=== PATIENT | male | born 1965 | race Caucasian/White ===

== ENCOUNTER 2016-03-03 07:28 | Day surgery (SDC) | payer BC ==
[2016-03-03] MEDS ORDERED: LACTATED RINGERS 1,000 ML IV ONE ×4 (07:44→10:50)
[2016-03-03] MEDS ORDERED: BUPIVACAINE 0.5% PF 30 ML VIAL SUBQ ONE ×2 (07:44→10:08)
[2016-03-03] MEDS ORDERED: ceFAZolin 2 GM/50 ML 50 ML IV ONE (08:09)
[2016-03-03] MEDS ORDERED: fentaNYL 100 MCG/2 ML VIAL IVP ONE (09:08)
[2016-03-03] MEDS ORDERED: ONDANSETRON 4 MG/2 ML VIAL IVP ONE (09:08)
[2016-03-03] MEDS ORDERED: PROPOFOL 200 MG/20 ML VIAL IVP ONE (09:08)
[2016-03-03] MEDS ORDERED: MIDAZOLAM 2 MG/2 ML VIAL IVP ONE (09:08)
[2016-03-03] MEDS ORDERED: LIDOCAINE-MPF 2% 5 ML VIAL IM ONE (09:08)
[2016-03-03] MEDS ORDERED: DEXAMETHASONE 4 MG/ML VIAL IVP ONE (09:08)
[2016-03-03] MEDS ORDERED: oxyCOD/ACETAMIN 5 MG/325 MG TABLET PO ONE (10:54)
== END 2016-03-03 07:29 | disposition home or self-care (01) ==
PROC: 0YU60JZ Supplement Left Inguinal Region with Synthetic Substitute, Open Approach (ICD-10-PCS; principal; 2016-03-03 08:30)
DX: K40.90 Unilateral inguinal hernia, without obstruction or gangrene, not specified as recurrent (principal); J45.909 Unspecified asthma, uncomplicated; K75.9 Inflammatory liver disease, unspecified; Z87.442 Personal history of urinary calculi; E03.9 Hypothyroidism, unspecified; Z91.040 Latex allergy status
CPT/HCPCS: 49505; A9270; C1781; J0690; J7120

== ENCOUNTER 2020-04-25 08:27 | Outpatient (CLI) | payer OTHER ==
[2020-04-25] MEDS ORDERED: IOVERSOL 320 100 ML VIAL IVP ONE ×2 (08:43→08:46)
--- NOTE | 2020-04-25 13:16 | CT Report ---
PROCEDURE: IVP INDICATIONS: HEMATURIA CONTRAST: IV CONTRAST: Optiray 320 ml: 140 PO CONTRAST: *NO PO CONTRAST TECHNIQUE: After the administration of intravenous contrast, 5 mm thick sections acquired from the diaphragms to the symphysis. 5 mm thick coronal and sagittal reformats were acquired. For radiation dose reducti on, the following was used: automated exposure control, adjustment of mA and/or kV according to tonya ent size. COMPARISON: None. FINDINGS: Image quality: Excellent. Lung bases: 3 mm left lower lobe nodule is present on series 4 image 96. Pulmonary bleb is noted in t he right lower lobe. Heart size is normal. Urinary system: Both kidneys are normal in size and enhancement. Contrast-filled renal calyces are normal in morphology. Contrast filled portions of both ureters are normal in caliber. Bladder wall thickness is normal. There is a 14 mm calcification within the posterior right lateral bladder near the ureterovesicular junction, Hounsfield units 782. There are no calcifications within the kidneys o r ureters. No obstruction. Solid organs: Liver and spleen are normal in size and enhancement. Gallbladder demonstrates a depen dent stone without wall thickening. Biliary system is non dilated. Pancreas enhances normally. No adrenal nodules. Peritoneum and bowel: Bowel loops demonstrate normal wall thickness and caliber. No free fluid or a ir. Colonic diverticula are present without associated inflammatory change. Nodes and vessels: No retroperitoneal or mesenteric adenopathy by size criteria. Aorta and inferior vena cava are normal in size. Abdominal wall: No ventral hernias. Pelvis: No pathologic free pelvic fluid. No inguinal hernias or adenopathy. There is a 2.5 cm focu s of low attenuation at the origin of the left inguinal canal seen on series 6 image 97. Hounsfield u nits measure approximately 12. Bones: No suspicious bony lesions. No vertebral body compression fractures. IMPRESSION: 1. Bladder calcification at the right ureterovesicular junction as above. No renal or ureteral calcul i are identified. 2. Cholelithiasis without imaging evidence of cholecystitis. 3. 3 mm left lower lobe pulmonary nodule, nonspecific and no priors are available for comparison. [facility] interval follow-up as below. 4. Nonspecific low-attenuation the origin of the left inguinal canal as above. This could represent a small focus of fluid. Fleischner Society criteria for SOLID lung nodule followup. Nodule size (mm) * <6 * Low-risk patient: No follow-up needed * High-risk patient: Optional CT at 12 months; if no change, no further follow-up * 6-8 * Low-risk patient: Initial follow-up CT at 6-12 months, then optional CT at 18-24 months. * High-risk patient: Initial follow-up CT at CT at 6-[address] 18-24 months. * >8 single nodule * Low-risk patient: CT, PET or biopsy at 3 months. * High-risk patient: Same as for low-risk pts. * >8 multiple nodules * Low-risk patient: CT at 3-6 months, then optional CT at 18-24 months * High-risk patient: CT at 3-6 months, then CT at 18-24 months Reviewed by: Monique Rosas MD on 04/25/2020 12:15 PM AKST Approved by: Monique Rosas MD on 04/25/2020 12:15 PM AKST Station ID: [id number]
== END 2020-04-25 08:28 | disposition home or self-care (01) ==
LOC: DI 08:27
PROVIDERS: ATTEND Internal Medicine
DX: R31.9 Hematuria, unspecified (principal); N32.89 Other specified disorders of bladder; K80.20 Calculus of gallbladder without cholecystitis without obstruction; R91.1 Solitary pulmonary nodule
CPT/HCPCS: 74178; Q9967

== ENCOUNTER 2020-05-14 09:39 | Day surgery (SDC) | payer OTHER ==
[2020-05-14] MEDS ORDERED: LACTATED RINGERS 1,000 ML IV ONE ×2 (09:45→12:50)
[2020-05-14] MEDS ORDERED: MIDAZOLAM 2 MG/2 ML VIAL ONE ×3 (12:16→12:40)
[2020-05-14] MEDS ORDERED: fentaNYL 250 MCG/5 ML VIAL ONE (12:17)
[2020-05-14 14:14] VITALS: BP 123/73
== END 2020-05-14 09:40 | disposition home or self-care (01) ==
LOC: SDS 09:39
PROVIDERS: ATTEND Surgery
DX: Z12.11 Encounter for screening for malignant neoplasm of colon (principal); J45.909 Unspecified asthma, uncomplicated; E03.9 Hypothyroidism, unspecified; Z86.010 Personal history of colon polyps; K57.30 Diverticulosis of large intestine without perforation or abscess without bleeding; K64.8 Other hemorrhoids
CPT/HCPCS: 45378; J3010; J7120

== ENCOUNTER 2020-07-21 08:19 | Emergency (ER) | payer OTHER ==
[2020-07-21 09:34] LABS: BILIRUBIN,URINE NEGATIVE (NEGATIVE); GLUCOSE, URINE (UA) NEGATIVE (NEGATIVE); KETONES,URINE (UA) NEGATIVE (NEGATIVE); LEUKOCYTE ESTERASE, URINE SMALL (NEGATIVE); NITRITE,URINE NEGATIVE (NEGATIVE); OCCULT BLOOD,URINE LARGE (NEGATIVE); PROTEIN,URINE 100 mg/dL (NEGATIVE); UROBILINOGEN,URINE 0.2 (NORMAL) E.U./dL (NORMAL)
[2020-07-21 09:39] LABS: CLARITY,URINE HAZY (CLEAR)
[2020-07-21 09:58] LABS: BACTERIA,URINE Few /HPF (None Seen); RBC,URINE TNTC /HPF (0-5); SQUAMOUS EPITHELIAL CELL,UR NONE SEEN (<= Few); WBC,URINE 0-3 /HPF (0-3)
--- NOTE | 2020-07-21 10:01 | ED Physician Documentation ---
History of Present Illness - Stated complaint Stated Complaint: MALE - Chief complaint Chief Complaint: Abd Pain - History obtained from History obtained from: Patient - Additonal information Additional information: 55-year-old man with past medical history of bladder stones status post TURP at [facility] by Dr. Minor on Wednesday, discharged with Mcclure in place, presents with sensation of urinary urgency since Wednesday with suprapubic cramping, burning and intermittent spasms since that time. He called the nurses line for his urologist and was told to come here to evaluate for urinary tract infection. He denies fevers at home. He did pass some small stones on the first day and is still passing small blood clots. Denies back pain or other symptoms. Review of Systems Constitutional: denies: Fever, Chills GI: reports: Abdominal Pain. denies: Nausea, Vomiting : reports: Dysuria PD PAST MEDICAL HISTORY - Past Medical History Past Medical History: Yes Cardiovascular: None Respiratory: None Endocrine/Autoimmune: HyPOthyroidism GI: None : None HEENT: None Psych: None Musculoskeletal: None Derm: None - Past Surgical History Past Surgical History: Yes General: Appendectomy Ortho: Shoulder arthroplasty - Present Medications Home Medications: Ambulatory Orders Medication Instructions Recorded Confirmed Levothyroxine Sodium [Levoxyl] 175 mcg PO DAILY 12/13/14 07/21/20 Pramipexole Di-HCl [Mirapex] 0.5 mg PO DAILY 12/13/14 07/21/20 Cefpodoxime Proxetil [Vantin] 100 mg PO Q12H #14 tablet 07/21/20 Oxybutynin Chloride [Ditropan Xl] 5 mg PO QDAC #7 tab 07/21/20 - Allergies Allergies/Adverse Reactions: Allergies Allergy/AdvReac Type Severity Reaction Status Date / Time latex Allergy Mild Rash Verified 07/21/20 08:23 ibuprofen AdvReac Intermediate Cramps Verified 07/21/20 08:23 - Social History Does the pt smoke?: No Smoking Status: Never smoker PD ED PE NORMAL - Vitals Vital signs reviewed: Yes - General General: Alert and oriented X 3, No acute distress, Well developed/nourished - HEENT HEENT: Atraumatic, PERRL, EOMI - Neck Neck: Supple, no meningeal sign - Abdomen Abdomen: Other (Suprapubic discomfort to palpation) - Back Back: No CVA TTP - Derm Derm: Normal color - Extremities Extremities: No deformity - Neuro Neuro: Alert and oriented X 3 - Psych Psych: Normal mood, Normal affect Results - Vitals Vitals: Vital Signs - 24 hr 07/21/20 08:23 Temperature 36.3 C L Heart Rate 73 Respiratory 18 Rate Blood Pressure 129/57 L O2 Saturation 96 Oxygen O2 Source Room air - Labs Labs: Laboratory Tests 07/21/20 09:11 Urine Color LT RED Urine Clarity HAZY Urine pH 7.0 Ur Specific [place] 1.025 Urine Protein 100 H Urine Glucose (UA) NEGATIVE Urine Ketones NEGATIVE Urine Occult Blood LARGE H Urine Nitrite NEGATIVE Urine Bilirubin NEGATIVE Urine Urobilinogen 0.2 (NORMAL) Ur Leukocyte Esterase SMALL H Urine RBC TNTC H Urine WBC 0-3 Ur Squamous Epith Cells NONE SEEN Urine Bacteria Few Urine Culture Comments INDICATED PD MEDICAL DECISION MAKING - ED course ED course: 55-year-old man presents with urinary tract infection status post bladder instrumentation on Wednesday. I will discharge him with antibiotics, antispasmodic and will have him follow-up for his scheduled uro appointment this Wednesday. Strict return precautions given Departure - Departure Disposition: Home, Self Care Clinical Impression: UTI (urinary tract infection), Bladder spasm Condition: Good Instructions: ED UTI Cystitis Male Follow-Up: BLAYNE MINOR [Physician No Access] - Prescriptions: Oxybutynin Chloride [Ditropan Xl] 5 mg PO QDAC #7 tab Cefpodoxime Proxetil [Vantin] 100 mg PO Q12H #14 tablet Comments: You were seen in the emergency department for bladder spasm and urinary tract infection. Please follow-up with Dr. Minor on Wednesday. Return to the emergency department if you experience any new or worsening symptoms or have other concerns.
[2020-07-21 10:14] VITALS: BP 130/73
== END 2020-07-21 10:19 | disposition home or self-care (01) ==
LOC: ED 08:19
DX: N39.0 Urinary tract infection, site not specified (principal); N32.89 Other specified disorders of bladder; Z98.890 Other specified postprocedural states
CPT/HCPCS: 51798; 81001; 87086; 99283; 99284

== ENCOUNTER 2020-08-31 10:59 | Emergency (ER) | payer OTHER ==
--- NOTE | 2020-08-31 12:03 | ED Physician Documentation ---
History of Present Illness - Stated complaint Stated Complaint: MALE - Chief complaint Chief Complaint: Abd Pain - Additonal information Additional information: 55-year-old male presents to the emergency department for evaluation of inabi lity to void. He reports having a TURP completed about 6 weeks ago at [facility] in [place]. His urologist is Dr. Benavides. The TURP was completed secondary to prostate hypertrophy. But he also had a very large bladder stone that was broken up and removed. Since the TURP was completed and his Mcclure was discontinued he has had some painful urination and over the last few weeks difficulty initiating the stream. He has been having a constant leak from his penis for which he is usually using a pad in his underwear. This morning he got up at around 6 AM and voided. It was a weak stream but was also divergent. Since then he has been unable to void. Has had no fevers. No flank pain abdominal pain or vomiting. Review of Systems Constitutional: reports: Reviewed and negative Ears: reports: Reviewed and negative Nose: reports: Reviewed and negative Throat: reports: Reviewed and negative Cardiac: reports: Reviewed and negative Respiratory: reports: Reviewed and negative GI: denies: Abdominal Pain, Nausea, Vomiting : reports: Dysuria, Hesitancy, Unable to Void Skin: reports: Reviewed and negative Musculoskeletal: reports: Reviewed and negative Neurologic: reports: Reviewed and negative PD PAST MEDICAL HISTORY - Past Medical History Cardiovascular: None Respiratory: None Endocrine/Autoimmune: HyPOthyroidism GI: None : None HEENT: None Psych: None Musculoskeletal: None Derm: None - Past Surgical History Past Surgical History: Yes General: Appendectomy Ortho: Shoulder arthroplasty - Present Medications Home Medications: Ambulatory Orders Medication Instructions Recorded Confirmed Levothyroxine Sodium [Levoxyl] 175 mcg PO DAILY 12/13/14 07/21/20 Pramipexole Di-HCl [Mirapex] 0.5 mg PO DAILY 12/13/14 07/21/20 Cefpodoxime Proxetil [Vantin] 100 mg PO Q12H #14 tablet 07/21/20 Oxybutynin Chloride [Ditropan Xl] 5 mg PO QDAC #7 tab 07/21/20 - Allergies Allergies/Adverse Reactions: Allergies Allergy/AdvReac Type Severity Reaction Status Date / Time latex Allergy Mild Rash Verified 08/31/20 11:10 ibuprofen AdvReac Intermediate Cramps Verified 08/31/20 11:10 - Social History Does the pt smoke?: No Smoking Status: Never smoker PD ED PE EXPANDED - General General: Alert, No acute distress - Cardiac Cardiac: Regular Rate, Radial strong equal, Cap refill < 2 sec - Respiratory Respiratory: Clear to ausultation jennifer. No: Distress, Labored - Abdomen Abdomen: Normal Bowel sounds. No: Tender to palpation - Male Male : Normal Exam, Other (Bladder scan with less than 200 ml volume) Results - Vitals Vitals: Vital Signs - 24 hr 08/31/20 08/31/20 11:05 12:05 Temperature 36.8 C 36.8 C Heart Rate 65 65 Respiratory 16 16 Rate Blood Pressure 132/70 H 132/70 H O2 Saturation 97 97 Oxygen O2 Source Room air - Labs Labs: Laboratory Tests 08/31/20 08/31/20 13:08 13:08 WBC 4.7 L RBC 5.22 Hgb 15.7 Hct 47.9 MCV 91.8 MCH 30.1 MCHC 32.8 RDW 12.5 Plt Count 244 MPV 9.1 Neut # (Auto) 2.3 Lymph # (Auto) 1.7 Whitley # (Auto) 0.5 Eos # (Auto) 0.1 Baso # (Auto) 0.0 Absolute Nucleated RBC 0.00 Nucleated RBC % 0.0 Sodium 138 Potassium 4.0 Chloride 102 Carbon Dioxide 27 Anion Gap 9.0 BUN 26 H Creatinine 1.0 Estimated GFR (MDRD) 77 L Glucose 96 Calcium 9.3 Total Bilirubin 0.9 AST 24 ALT 29 Alkaline Phosphatase 72 Total Protein 7.5 Albumin 4.5 Globulin 3.0 Albumin/Globulin Ratio 1.5 Lipase 29 PD MEDICAL DECISION MAKING - ED course Complexity details: reviewed results, re-evaluated patient, d/w patient, d/w family ED course: 55-year-old male presents to the ED for evaluation of acute urinary obstruction. He had a history of a TURP and bladder stone removal about 6 weeks ago. Over the ensuing weeks he has had increased difficulty initiating urine stream as well as more dribble. He was able to void at 6 this a.m. but when he attempted to void later he was obstructed. Here in the ER he was noted to have an initial bladder scan of about 200 mL. However given the history we attempted to place a Mcclure but we are unable to advance any Mcclure or coud catheter including pediatric catheters any further than about 2 cm from his meatus. I suspect that he has an acute urethral obstruction that we are not able to clear here at [facility]. Will contact [facility] to attempt transfer for urgent urologic intervention. I have been contacted by Dr. Chirinos [facility] transfer physician who has arranged for the patient to drive via private vehicle to [facility]. Once they are he will be met by the attending physician in the urgent care and they will notify the on-call urologist. The plan is to address the urethral obstruction in the clinic otherwise he may be taken me emergently to Operating room. Patient and his were made aware of this. The patient is advised that he should remain n.p.o. during the transport to [place]. Emergency room staff have helped coordinate with the [facility] terminal to allow the patient to bypass very traffic. Departure - Departure Disposition: 01 Home, Self Care Clinical Impression: Urethral obstruction Comments: Ileum you are being discharged from the emergency department. You are to proceed immediately to [facility] which [facility]. The address is: [address] [facility] [address] Proceed there immediately. Do not have anything to eat or drink on the way as you may require surgery. Once there you will be met by the attending physician at the urgent care and they will notify the on-call urologist who is expecting your arrival
[2020-08-31 13:15] LABS: BASOPHILS % (AUTO) 0.4 %; EOSINOPHILS # (AUTO) 0.1 10^3/uL (0.0-0.7); EOSINOPHILS % (AUTO) 2.8 %; HCT - HEMATOCRIT 47.9 % (42.0-52.0); HGB - HEMOGLOBIN 15.7 g/dL (14.0-18.0); LYMPHOCYTES # (AUTO) 1.7 10^3/uL (1.5-3.5); LYMPHOCYTES % (AUTO) 35.2 %; MEAN CORPUSCULAR HEMOGLOBIN 30.1 pg (27.0-31.0); MEAN CORPUSCULAR HGB CONC 32.8 g/dL (32.0-36.0); MEAN CORPUSCULAR VOLUME 91.8 fL (80.0-94.0); MEAN PLATELET VOLUME 9.1 fL (7.4-11.4); MONOCYTES # (AUTO) 0.5 10^3/uL (0.0-1.0); MONOCYTES % (AUTO) 11.5 %; NEUTROPHILS # (AUTO) 2.3 10^3/uL (1.5-6.6); NEUTROPHILS % (AUTO) 49.7 %; PLT - PLATELET COUNT 244 10^3/uL (130-450); RED BLOOD COUNT 5.22 10^6/uL (4.70-6.10); RED CELL DISTRIBUTION WIDTH 12.5 % (12.0-15.0); WHITE BLOOD COUNT 4.7 x10^3/uL (4.8-10.8)
[2020-08-31 13:36] LABS: ALBUMIN 4.5 g/dL (3.2-5.5); ALBUMIN/GLOBULIN RATIO 1.5 (1.0-2.2); BILIRUBIN,TOTAL 0.9 mg/dL (0.2-1.0); CALCIUM 9.3 mg/dL (8.5-10.3); TOTAL PROTEIN 7.5 g/dL (6.7-8.2)
[2020-08-31 13:55] VITALS: BP 128/72
== END 2020-08-31 13:54 | disposition home or self-care (01) ==
LOC: ED 10:59
DX: N36.8 Other specified disorders of urethra (principal)
CPT/HCPCS: 36415; 80053; 83690; 85025; 99283

== ENCOUNTER 2020-09-07 17:31 | Emergency (ER) | payer OTHER ==
[2020-09-07 17:41] VITALS: BP 120/106
--- NOTE | 2020-09-07 18:06 | ED Physician Documentation ---
History of Present Illness - Stated complaint Stated Complaint: MALE - Chief complaint Chief Complaint: General - History obtained from History obtained from: Patient - Additonal information Additional information: TURP in June and more recently had a urethral stricture causing urinary retention. He has had a Mcclure in for about 10 days, it is due to come out tomorrow but started leaking around the Mcclure today and would like it removed. He does live pretty close to the hospital. Review of Systems Constitutional: denies: Fever, Chills, Myalgias Throat: reports: Reviewed and negative Cardiac: reports: Reviewed and negative PD PAST MEDICAL HISTORY - Past Medical History Past Medical History: Yes Cardiovascular: None Respiratory: None Endocrine/Autoimmune: HyPOthyroidism GI: None : Benign prostate hypertrophy, Retention HEENT: None Psych: None Musculoskeletal: None Derm: None - Past Surgical History Past Surgical History: Yes General: Appendectomy Ortho: Shoulder arthroplasty - Present Medications Home Medications: Ambulatory Orders Medication Instructions Recorded Confirmed Levothyroxine Sodium [Levoxyl] 175 mcg PO DAILY 12/13/14 09/07/20 Pramipexole Di-HCl [Mirapex] 0.5 mg PO DAILY 12/13/14 09/07/20 - Allergies Allergies/Adverse Reactions: Allergies Allergy/AdvReac Type Severity Reaction Status Date / Time latex Allergy Mild Rash Verified 09/07/20 17:41 ibuprofen AdvReac Intermediate Cramps Verified 09/07/20 17:41 - Social History Does the pt smoke?: No Smoking Status: Never smoker Does the pt drink ETOH?: No Does the pt have substance abuse?: No - Immunizations Immunizations are current?: Yes PD ED PE NORMAL - Vitals Vital signs reviewed: Yes - General General: Alert and oriented X 3, No acute distress - Male Male : Other (Clear urine in the bag without obvious blood or purulence Mcclure in place.) - Neuro Neuro: Alert and oriented X 3, Normal speech Results - Vitals Vitals: Vital Signs - 24 hr 09/07/20 17:36 Temperature 37.0 C Heart Rate 79 Respiratory 16 Rate Blood Pressure 120/106 H O2 Saturation 97 Oxygen O2 Source Room air PD MEDICAL DECISION MAKING - ED course ED course: Mcclure catheter removed by me without complication. He prefers to do the voiding trial at home since he lives only a few minutes away. Departure - Departure Disposition: 01 Home, Self Care Clinical Impression: Urethral obstruction Condition: Good Record reviewed to determine appropriate education?: Yes Comments: Return if unable to urinate, follow-up with your urologist as scheduled. Discharge Date/Time: 09/07/20 18:09
== END 2020-09-07 18:09 | disposition home or self-care (01) ==
LOC: ED 17:31
DX: T83.031A Leakage of indwelling urethral catheter, initial encounter (principal); Y84.6 Urinary catheterization as the cause of abnormal reaction of the patient, or of later complication, without mention of misadventure at the time of the procedure; N36.8 Other specified disorders of urethra
CPT/HCPCS: 99281; 99282

== ENCOUNTER 2021-02-07 08:28 | Emergency (ER) | payer OTHER ==
[2021-02-07 08:49] VITALS: BP 127/90
[2021-02-07] MEDS ORDERED: KETOROLAC 60 MG/2 ML VIAL IM STA (09:13)
[2021-02-07] MEDS ORDERED: DEXAMETHASONE 10 MG/ML VIAL PO STA (09:13)
[2021-02-07] MEDS ORDERED: CHERRY SYRUP 10 ML UDC PO ONE (09:13)
--- NOTE | 2021-02-07 09:15 | ED Physician Documentation ---
PD HPI BACK PAIN - Stated complaint Stated Complaint: BACK PX - Chief complaint Chief Complaint: Back Pain - History obtained from History obtained from: Patient - History of Present Illness Timing - onset: How many days ago (4) Timing - duration: Days (4) Timing - details: Gradual onset, Still present Location: Lower, Right Quality: Pain, Spasm, Sharp, Similar to prior episodes Associated symptoms: No: Fever, Weakness, Numbness, Incontinent of urine, Unable to urinate, Hematuria, Incontinent of stool Improves with: Rest, Position, Meds Worsened by: Movement Contributing factors: Other (went bowling last week had mild pain then went golfing feeling OK and now not so good.) Similar symptoms before: Diagnosis (back strian and sciatica) Recently seen: Not recently seen - Additional information Additional information: Appears well 55-year-old male with a history of urethral stricture and back pain has developed back pain after bowling last week and playing golf this week. He states that his pain is in the lower right he does have some mild numbness to the right leg he denies any difficulty with urination or stool and denies any perineal numbness. He has not otherwise been ill. He has pain when he attempts to move and if he is absolutely still his pain is much improved. Review of Systems Constitutional: denies: Fever Eyes: denies: Decreased vision Ears: denies: Ear pain Nose: denies: Congestion Throat: denies: Sore throat Cardiac: denies: Chest pain / pressure, Palpitations Respiratory: denies: Dyspnea GI: denies: Abdominal Pain, Nausea, Vomiting, Constipation, Diarrhea : denies: Dysuria, Frequency Skin: denies: Rash Musculoskeletal: reports: Back pain. denies: Neck pain, Extremity pain PD PAST MEDICAL HISTORY - Past Medical History Cardiovascular: None Respiratory: None Endocrine/Autoimmune: HyPOthyroidism GI: None : Benign prostate hypertrophy, Retention HEENT: None Psych: None Musculoskeletal: None Derm: None - Past Surgical History Past Surgical History: Yes General: Appendectomy Ortho: Shoulder arthroplasty - Present Medications Home Medications: Ambulatory Orders Medication Instructions Recorded Confirmed Levothyroxine Sodium [Levoxyl] 175 mcg PO DAILY 12/13/14 09/07/20 Pramipexole Di-HCl [Mirapex] 0.5 mg PO DAILY 12/13/14 09/07/20 Cyclobenzaprine [Flexeril] 10 mg PO TID PRN #20 tablet 02/07/21 HYDROcod/ACETAM 5/325 [Kramer 5/325] 1 - 2 tablet PO Q6H PRN #14 tablet 02/07/21 - Allergies Allergies/Adverse Reactions: Allergies Allergy/AdvReac Type Severity Reaction Status Date / Time latex Allergy Mild Rash Verified 02/07/21 08:50 ibuprofen AdvReac Intermediate Cramps Verified 02/07/21 08:50 - Social History Does the pt smoke?: No Smoking Status: Never smoker Does the pt drink ETOH?: No Does the pt have substance abuse?: No - Immunizations Immunizations are current?: Yes PD ED PE NORMAL - Vitals Vital signs reviewed: Yes (hypertensive ) - General General: Alert and oriented X 3, No acute distress, Well developed/nourished - HEENT HEENT: Atraumatic, PERRL, EOMI - Respiratory Respiratory: No respiratory distress - Back Back: No CVA TTP, No spinal TTP, Other (right paraspinous muscle tenderness and firmness at the L3/4 level. ) - Derm Derm: Normal color, Warm and dry, No rash - Extremities Extremities: No deformity, No edema - Neuro Neuro: Alert and oriented X 3, guide domestic tour 2-12 intact, No motor deficit, No sensory deficit, Normal speech Eye Opening: Spontaneous Motor: Obeys Commands Verbal: Oriented GCS Score: 15 - Psych Psych: Normal mood, Normal affect Results - Vitals Vitals: Vital Signs - 24 hr 02/07/21 08:45 Temperature 36.3 C L Heart Rate 69 Respiratory 18 Rate Blood Pressure 127/90 H O2 Saturation 97 Oxygen O2 Source Room air PD MEDICAL DECISION MAKING - ED course Complexity details: considered differential, d/w patient ED course: 55-year-old male with an acute lumbar strain has lumbar sciatica and is administered dexamethasone and Toradol. We will place him on a course of pain medication a muscle relaxant and he has a local physician to follow-up with. Departure - Departure Disposition: 01 Home, Self Care Clinical Impression: Acute lumbosacral myofascial strain Qualifiers: Encounter type: initial encounter Qualified Code(s): S39.012A - Strain of muscle, fascia and tendon of lower back, initial encounter Condition: Stable Instructions: ED Sprain Strain Lumbar Follow-Up: Tram Teague MD [Primary Care Provider] - Prescriptions: Cyclobenzaprine [Flexeril] 10 mg PO TID PRN #20 tablet PRN Reason: Spasms HYDROcod/ACETAM 5/325 [Kramer 5/325] 1 - 2 tablet PO Q6H PRN #14 tablet PRN Reason: Pain Discharge Date/Time: 02/07/21 09:50
== END 2021-02-07 09:50 | disposition home or self-care (01) ==
LOC: ED 08:28
DX: S39.012A Strain of muscle, fascia and tendon of lower back, initial encounter (principal); X58.XXXA Exposure to other specified factors, initial encounter
CPT/HCPCS: 96372; 99283; 99284; A9270

== ENCOUNTER 2021-05-13 11:22 | Outpatient (CLI) | payer OTHER ==
[2021-05-13 11:46] LABS: BASOPHILS % (AUTO) 0.5 %; EOSINOPHILS # (AUTO) 0.1 10^3/uL (0.0-0.7); EOSINOPHILS % (AUTO) 1.7 %; HGB - HEMOGLOBIN 16.6 g/dL (14.0-18.0); LYMPHOCYTES # (AUTO) 1.5 10^3/uL (1.5-3.5); LYMPHOCYTES % (AUTO) 36.5 %; MEAN CORPUSCULAR HEMOGLOBIN 30.3 pg (27.0-31.0); MEAN CORPUSCULAR HGB CONC 33.2 g/dL (32.0-36.0); MEAN CORPUSCULAR VOLUME 91.4 fL (80.0-94.0); MEAN PLATELET VOLUME 9.3 fL (7.4-11.4); MONOCYTES # (AUTO) 0.4 10^3/uL (0.0-1.0); MONOCYTES % (AUTO) 9.8 %; NEUTROPHILS # (AUTO) 2.1 10^3/uL (1.5-6.6); NEUTROPHILS % (AUTO) 51.3 %; PLT - PLATELET COUNT 273 10^3/uL (130-450); RED BLOOD COUNT 5.47 10^6/uL (4.70-6.10); RED CELL DISTRIBUTION WIDTH 12.7 % (12.0-15.0); WHITE BLOOD COUNT 4.2 x10^3/uL (4.8-10.8)
[2021-05-13 12:17] LABS: ALBUMIN 4.8 g/dL (3.2-5.5); ALBUMIN/GLOBULIN RATIO 1.5 (1.0-2.2); ALKALINE PHOSPHATASE 72 IU/L (42-121); ALT ALANINE AMINOTRANSFERASE 37 IU/L (10-60); AST ASPARTATE AMINOTRANSFERASE 35 IU/L (10-42); BILIRUBIN,TOTAL 1.3 mg/dL (0.2-1.0); BUN - BLOOD UREA NITROGEN 25 mg/dL (6-20); CALCIUM 9.2 mg/dL (8.5-10.3); CARBON DIOXIDE - CO2 28 mmol/L (21-32); CHLORIDE 99 mmol/L (101-111); CHOL/HDL RATIO 3.2 (<5.0); CHOLESTEROL 181 mg/dL; GFR - MDRD 77 (>89); GLUCOSE 103 mg/dL (70-100); HDL CHOLESTEROL 56 mg/dL; LDL CHOLESTEROL,CALCULATED 111 mg/dL; POTASSIUM 4.2 mmol/L (3.5-5.0); SODIUM 136 mmol/L (135-145); TOTAL PROTEIN 7.9 g/dL (6.7-8.2); TRIGLYCERIDES 70 mg/dL; VLDL CHOLESTEROL 14 mg/dL
[2021-05-13 13:01] LABS: PSA FREE 0.06 ng/mL (0.16-2.81)
[2021-05-13 13:02] LABS: PSA TOTAL 0.38 ng/mL (0.000-2.000)
[2021-05-13 13:25] LABS: ESTIMATED AVERAGE GLUCOSE 117 mg/dL (70-100); HEMOGLOBIN A1c% 5.7 % (4.27-6.07)
== END 2021-05-13 11:23 | disposition home or self-care (01) ==
LOC: LAB 11:22
PROVIDERS: ATTEND Internal Medicine
DX: Z00.00 Encounter for general adult medical examination without abnormal findings (principal); Z86.010 Personal history of colon polyps; E03.9 Hypothyroidism, unspecified; R73.01 Impaired fasting glucose; N20.0 Calculus of kidney; G25.81 Restless legs syndrome
CPT/HCPCS: 36415; 80053; 80061; 83036; 83721; 84153; 84154; 84443; 85025

== ENCOUNTER 2022-09-03 08:57 | Outpatient (CLI) | payer OTHER ==
--- NOTE | 2022-09-03 09:30 | Sleep Patient Instructions ---
Sleep Center Visit Summary - Patient Visit Information Reason for Visit: Initial consult for evaluation of sleep disordered breathing and other sleep issues. - Patient Instructions Instructions Attached: Sleep Study, Sleep Clinic Visit, Sleep Study Home Monitor Additional Instructions: You will be completing a sleep study, either an in-lab polysomnography (PSG) or home sleep study (HST). You will follow-up in the sleep care office after the sleep study is completed to hear the results and talk about therapy, if needed. You will be called by our office staff to schedule this appointment, but you may contact us with any questions. - Clinic Information Contact: [facility] [address] [place] [address] [email or web address] T: [phone]
[2022-09-03 09:36] VITALS: BP 120/60
--- NOTE | 2022-09-03 09:36 | SLEEP CARE CONSULTATION ---
Information from patient questionnaire entered by Geetha Viera. I have reviewed and concur with the information entered by Geetha Viera. This document represents the service I personally performed and the decisions made by me, Rachell Araujo ARNP. History of Present Illness Service Date and Time: 09/03/2022 0857 Reason for Visit: New patient Accompanied by: Spouse Chief Complaint: reports: Snoring Date of Onset: 8+ Usual bedtime: 930PM Time it takes to fall asleep: 20-30MIN Snores at night: Yes Observed to quit breathing while asleep: No Sleeps alone due to snoring: Yes Number of times waking at night: 1-2 Reasons for waking at night: reports: Snoring, Bathroom, Other (has restless leg syndrome which can affect sleep). denies: Choking, Gasping for air Toss, Turn, or Twitch while sleeping: Yes Recalls having dreams: Yes Usually gets out of bed at: 630-7AM Feels refreshed in the morning: Yes Morning headache: No Sleepy or fatigued during the day: No Ever fallen asleep while driving: No Takes day naps: Yes (1 every week or two; only lasts 10-15 minutes) Dreams during day naps: No Prior sleep studies: No Additional HPI information: I had the pleasure of seeing SUSU COLLIER today regarding the possibility of him having a sleep disorder. His current complaint is snoring. He is accompanied by his today. He states his snoring has been getting worse over last several years. He has tried many ways to resolve the snoring at night. His states that his snoring is loud and can keep her awake. She is a light sleeper and will sometimes sleep in another room. She states he snores loudest on his back and will have him roll to side. She has never seen him stop breathing or gasp/choke in his sleep. He states he has woke himself snoring but only when taking a nap in his recliner. He only gets a nap every week or two and they only last 10-15 minutes because of his restless legs. He does take medication for RLS nightly to control his restless legs. If he does not take the medication he can be up for hours trying to get to sleep. He states he normally feels refreshed from sleep in morning and has not complaints of daytime sleepiness or fatigue. He states his father has sleep apnea and uses a PAP machine at night when sleeping. 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 Patient is and lives in [place]. Have you smoked in the past 12 months: No Alcohol use: No Caffeine use: Yes Caffeine amount and frequency: 1-2 DIET PEPSI DAILY Family History Family history of sleep disordered breathing: Yes Family Hx Sleep Apnea: Father: Snoring, Sleep apnea - Treated Allergies and Home Medications Known drug allergies: Yes (motrin - sensitivity) Drug allergies reviewed: Yes Home medication list reviewed: Yes Allergy and home medication list: Allergies latex Allergy (Mild, Verified 09/02/22 09:46) Rash canker sores in mouth ibuprofen Adverse Reaction (Intermediate, Verified 09/02/22 09:46) Cramps Medications: Levothyroxine 0.15 mg Pramipexole 0.5 mg Review of Systems Weight gain over past 5 years: 15 Cardiovascular: denies: high blood pressure Respiratory: denies: shortness of breath Gastrointestinal: denies: heartburn Neurological: denies: headaches Psychiatric: denies: anxiety, depression Ear/Nose/Throat: reports: wisdom teeth removed. denies: injury to nose, tonsillectomy Endocrine: reports: thyroid disease Immunologic: reports: allergies to food or environment (seasonal; latex; cat/dog dander) Physical Exam Vital signs obtained and entered by: GEETHA Sims MA Blood Pressure: 120/60 (LEFT ARM) Cuff size: regular Heart Rate: 61 O2 Saturation: 96 Height: 5 ft 10 in Weight: 205 lb Body Mass Index: 29.4 BMI Classification: Overweight Neck circumference: 14.75 Mouth and throat: narrow oropharynx Soft palate: long Hard palate: normal Uvula: normal Uvula visualization: 25% Mallampati Class III Tongue: normal in size Tonsils: 1+ Neck: normal w/o lymphadenopathy or thyromegaly Heart: regular rate and rhythm Lungs: clear bilaterally Impression and Plan 1. Suspected Obstructive Sleep Apnea-Hypopnea Syndrome, as suggested by a history of loud and irregular snoring and restless legs syndrome. Narrow oropharynx and obesity are common predisposing factors for obstructive sleep apnea-hypopnea syndrome. I recommend proceeding to polysomnography to confirm the diagnosis and to assess severity. If the patient has significant sleep disordered breathing, a manual CPAP titration study will also be performed to find the optimal treatment pressure. I informed the patient of what the sleep studies involve and after some discussion, obtained agreement to proceed. The pathophysiology of obstructive sleep apnea-hypopnea syndrome was discussed with the patient and health risks of cardiovascular and cerebrovascular disease if not treated. 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 Patient agreed to plan. * Schedule polysomnography +- manual CPAP titration study and return in 1-2 weeks after the study to discuss result and initiate therapy. * Avoid long distance driving or driving when feeling sleepy. * Avoid alcohol, sedative and muscle relaxant around bedtime. * Attempt to lose weight. * Review instructions provided by trained office staff on how to prepare for the sleep study. * Return for follow-up after sleep study completed. Counseling Topics: Weight loss health impact Visit Type: In Office Time Spent with Patient (minutes): 30 Provider Statement: I spent 100% of the Face to Face Visit with the patient with greater than 50% spent counseling the patient and coordination of care.
== END 2022-09-03 08:58 | disposition home or self-care (01) ==
LOC: SC 08:57
PROVIDERS: ATTEND Nurse Practitioner Family
DX: R06.83 Snoring (principal); G25.81 Restless legs syndrome; E66.3 Overweight; Z68.29 Body mass index [BMI] 29.0-29.9, adult
CPT/HCPCS: 99203; 99212

== ENCOUNTER 2022-09-17 19:36 | Outpatient (CLI) | payer OTHER | END 2022-09-17 19:37 | disposition home or self-care (01) | LOC: SC 19:36 | PROVIDERS: ATTEND Nurse Practitioner Family | DX: G47.33 Obstructive sleep apnea (adult) (pediatric) (principal); G47.61 Periodic limb movement disorder; E66.3 Overweight; Z68.29 Body mass index [BMI] 29.0-29.9, adult | CPT/HCPCS: 95810 ==

== ENCOUNTER 2022-10-08 13:39 | Outpatient (CLI) | payer OTHER ==
--- NOTE | 2022-10-08 13:38 | SLEEP CARE CONSULTATION ---
Information from patient questionnaire entered by Ruthie Viera. I have reviewed and concur with the information entered by Ruthie Viera. This document represents the service I personally performed and the decisions made by me, Rachell Araujo ARNP. History of Present Illness Service Date and Time: 10/08/2022 1320 Initial [place] Sleepiness Scale score: 7 (09/03/22) Current [place] Sleepiness Scale score: 11 (10/08/22) Additional HPI information: SUSU COLLIER returns via video telehealth visit for follow up and results of the recently performed polysomnography. His PSG showed mild obstructive sleep apnea (moderate supine) with an average AHI of 7.7 and yuki oxygen saturation of 78%. He also had moderate PLMs that did not contribute to sleep fragmentation. I explained the pathophysiology behind obstructive sleep apnea. We then spent quite a bit of time discussing different treatment options. For mild obstructive sleep apnea, surgery and oral appliance are alternatives to nasal CPAP therapy but in moderate or severe cases, nasal CPAP is the most effective and reliable treatment. Because apnea is primarily in supine position, then positional management therapy could be effective. Methods discussed such as positioning with pillows, using a T-shirt with tennis balls in the back, and shown commercial products that have a pillow format on back to prevent supine sleep. I reviewed the impact of weight changes on sleep apnea and strongly recommended losing weight. After some discussion, the patient opted to go with the nasal CPAP therapy. Nasal autoCPAP set at 4-15 cmH20 will be ordered with rationale explained. A manual titration study will be ordered if unable to find optimal pressure with office adjustments. I explained how CPAP machine works and what to expect when using the machine. Using CPAP every night in order to get used to it was emphasized. Patient advised to put CPAP mask on before getting into bed so as not to fall asleep without CPAP. To assist acclimation to CPAP use, it could also be used for a short time during day while reading or watching TV. The patient was instructed to call the CPAP supplier to discuss any mechanical problem that may occur. If the mask given is uncomfortable or is difficult to keep on through the night even with adjustment, contact the CPAP supplier as many will replace with another mask style if notified before 30 days. If snoring or perceives is not getting enough air or too much air from the machine, notify this office. Patient does not drink alcohol. Patient was cautioned about risks of drowsy driving until sleepiness symptoms resolve. Patient denies drowsy driving. Sleep Study - Results Type of Sleep Study: Polysomnography (LAST SEEN 09/17/22) Prior sleep studies: No Polysomnography/Home Sleep Study results: IMPRESSION: The quality of the study is good. The patient had reduced sleep eff iciency due to several awakenings during the night. The sleep architecture was relatively normal considering the first-night effect. Respiratory monitoring showed mild obstructive sleep apnea-hypopnea (AHI = 7.7) associated with oxyhemoglobin desaturation and moderate hypoxia (yuki oxygen saturation of 78%) but not sleep fragmentation. The respiratory events occurred almost exclusively during supine REM sleep (supine AHI = 26.2; non- supine = 1.03) but not sleep fragmentation. Snore was very loud in intensity. There was moderate periodic leg movement of sleep not associated with sleep fragmentation. Cardiac rhythm was normal sinus rhythm without significant arrhythmia. No abnormal behavior (parasomnia) observed during the night. Allergies and Home Medications Known drug allergies: Yes (as listed) Drug allergies reviewed: Yes Home medication list reviewed: Yes (no changes) Allergy and home medication list: Allergies latex Allergy (Mild, Verified 10/07/22 10:20) Rash canker sores in mouth ibuprofen Adverse Reaction (Intermediate, Verified 10/07/22 10:20) Cramps Review of Systems Review of systems same as previous: Yes (no changes) Physical Exam Vital signs obtained and entered by: RUTHIE Sims MA Height: 5 ft 10 in (PER PT) Weight: 200 lb (PER PT) Body Mass Index: 28.7 BMI Classification: Overweight Impression and Plan 1. Obstructive Sleep Apnea-Hypopnea Syndrome, mild (moderate supine), with lowest oxygen saturation of 78%. Positive pressure therapy could benefit asthma, RLS. As mentioned above, the patient will be started on nasal autoCPAP therapy with pressure set at 4-15 cmH2O. Compliance guidelines also reviewed. A copy of compliance guidelines will be given for reference at check out. Because the apnea is more severe supine, I instructed to avoid sleeping supine using pillow positioning until able to start CPAP use. 2. Hypoxemia, moderate, with a yuki oxygen saturation of 78% and 7.5 minutes spent under 90%. His baseline oxygen saturation was normal with an average oxygen saturation of 92%. 3. Periodic limb movement, moderate, that did not fragment patients sleep. Periodic limb movement of sleep (PLMS) is characterized by episodes of repetitive limb movements that occur during sleep and usually involve the lower limbs. The etiology is unknown but can be associated with restless leg syndrome (RLS) and iron deficiency as reflected by a low serum ferritin level below 50 to 75mcg / L. Caffeine can also aggravate PLMS and should be avoided. Sleep hygiene methods can also improve sleep as well as lifestyle changes such as regular exercise. Patient was advised that no treatment is needed at this time. If symptoms increase, then further evaluation is indicated. * Nasal auto CPAP therapy, pressure at 4-15 cm H2O. * Attempt to lose weight. * Avoid alcohol consumption near bedtime. * Avoid supine sleep until using CPAP. * The patient is again cautioned about driving until sleepiness completely resolves. * Return one month after CPAP obtained. I will assess response to therapy and compliance at that time. Counseling Topics: Weight loss health impact Visit Type: Telehealth Video Video Type: Doximity Patient Location: Home Location of Provider: Office Patient agrees and consents to this telehealth visit type: Yes Patient agrees to have their insurance billed: Yes Time Spent with Patient (minutes): 22 Provider Statement: I spent 100% of the Telehealth Video Call with the patient with greater than 50% spent counseling the patient and coordination of care.
== END 2022-10-08 13:40 | disposition home or self-care (01) ==
LOC: SC 13:39
PROVIDERS: ATTEND Nurse Practitioner Family
DX: G47.33 Obstructive sleep apnea (adult) (pediatric) (principal); R09.02 Hypoxemia; G47.61 Periodic limb movement disorder; E66.3 Overweight; Z68.28 Body mass index [BMI] 28.0-28.9, adult

== ENCOUNTER 2022-12-03 08:24 | Outpatient (CLI) | payer OTHER ==
--- NOTE | 2022-12-03 08:51 | Sleep Patient Instructions ---
Sleep Center Visit Summary - Patient Visit Information Reason for Visit: First compliance for PAP therapy - Patient Instructions Additional Instructions: You were here for follow up of CPAP therapy. You will be continued on CPAP therapy with pressure at 7-10 cmH2O. You should follow up with sleep care in 3 months. You may contact us sooner for any questions or concerns. - Clinic Information Contact: [facility] [address] [place] [address] [email or web address] T: [phone]
--- NOTE | 2022-12-03 08:55 | SLEEP CARE CONSULTATION ---
Information from patient questionnaire entered by Ruthie Viera. I have reviewed and concur with the information entered by Ruthie Viera. This document represents the service I personally performed and the decisions made by , Rachell Araujo ARNP. History of Present Illness Service Date and Time: 12/03/2022823 Previous diagnosis: Mild, Obstructive Sleep Apnea-Hypopnea Syndrome AHI: 7.7 (in 08/2022) Reason for follow up: first compliance Equipment type: CPAP (RESMED AirSense 11, s/u 09/2022) Equipment obtained from: [employer] (getting supplies) Mask style: Full face Backup mask available: No (will keep old mask when replaced) Last cushion change: 1 month plus Prior sleep studies: No Type of Sleep Study: Polysomnography (LAST SEEN 09/17/22) HPI additional information: ARTEMIO COLLIER was diagnosed to have mild, AHI 7.7, obstructive sleep apnea- hypopnea syndrome and returned today for CPAP therapy first compliance follow- up. Sleep Study - Results Type of Sleep Study: Polysomnography (LAST SEEN 09/17/22) Prior sleep studies: No CPAP Compliance Data - Data Reviewed with Patient Average duration of nightly device use: 6 HRS 14 MINS Compliance rate %: 73 (11/01/22-11/30/22; 30 days used) Current pressure setting (cmH2O): 7-10 (median 7.9, avg 9.6, max 9.8) Average residual AHI: 1.8 Central apnea: 0.9 Obstructive apnea: 0.6 Hypopnea: 0.2 Average large leak: 0 L/min Subjective Patient concerns: reports: condensation in mask/hose (slight condensation gets on nose, itches). denies: aerophagia, mask discomfort, air blowing in eyes, mask leak noise, nasal congestion, dry mouth, nose, throat, epistaxis Observed to snore while using device: Yes (occasional) Current pressure setting perceived as: comfortable (?, little bit of air puffing cheeks) On therapy, patient: reports: other (not a lot of difference in sleep yet). denies: drowsiness while driving Initial [place] Sleepiness Scale score: 7 (09/03/22) Current [place] Sleepiness Scale score: 5 Allergies and Home Medications Known drug allergies: Yes (as listed) Drug allergies reviewed: Yes Home medication list reviewed: Yes (no changes) Allergy and home medication list: Allergies latex Allergy Rash canker sores in mouth ibuprofen Adverse Reaction Cramps Review of Systems Review of systems same as previous: Yes (no changes) Physical Exam Vital signs obtained and entered by: Rachell Mera NP Blood Pressure: 126/77 Cuff size: wrist (left) Heart Rate: 62 O2 Saturation: 95 Height: 5 ft 10 in (PER PT) Weight: 210 lb 3.2 oz Body Mass Index: 30.1 BMI Classification: Obese Impression and Plan 1. Obstructive Sleep Apnea-Hypopnea Syndrome, mild, with good treatment compliance and good apnea control. On CPAP therapy, the patient has better sleep quality and is more rested overall. Artemio had called our office earlier about his pressure and it was adjusted prior to this appointment to 7-10 cmH2O. The pressure change continues to be comfortable with just occasional air puffing his cheeks when he is sleeping on his back. He does get a little soreness on the bridge of his nose from his mask but otherwise it is comfortable. We discussed using a hybrid fullface mask that sits under the nose and covers the mouth. He may reach out to [facility] to change the style fullface mask for comfort. He voiced understanding and agreement. Patient's apnea severity and rationale for treatment to reduce apnea, improve sleep quality and reduce cardiovascular and cerebrovascular events was reviewed. I also reviewed the benefit of consistent device use of CPAP for asthma and RLS. 2. Obesity, unspecified. Currently patients BMI is 30.1. Obesity increases the risk of apnea, CPAP pressure requirements and overall health risks especially cardiovascular and diabetes. Thus patient is advised to lose weight. * Continue auto CPAP pressure at 7-10 cmH2O * Notify me if snoring with mask or feeling that the pressure is too much or too little * Attempt to lose weight * Call this office if any problems using CPAP * Return for follow up in 3 months, or sooner if concerns arise Counseling Topics: Spare mask, Weight loss health impact Follow up with Sleep Care in: 3 months Visit Type: In Office Time Spent with Patient (minutes): 22 Provider Statement: I spent 100% of the Face to Face Visit with the patient with greater than 50% spent counseling the patient and coordination of care.
[2022-12-03 09:02] VITALS: BP 126/77; O2SAT 95
== END 2022-12-03 08:25 | disposition home or self-care (01) ==
LOC: SC 08:24
PROVIDERS: ATTEND Nurse Practitioner Family
DX: G47.33 Obstructive sleep apnea (adult) (pediatric) (principal); E66.9 Obesity, unspecified; Z68.30 Body mass index [BMI] 30.0-30.9, adult
CPT/HCPCS: 99212; 99213